=== PATIENT | male | born 1975 | race African-American/Black ===

== ENCOUNTER 2017-06-08 19:31 | Emergency (ER) | payer OTHER ==
[2017-06-08] MEDS ORDERED: Ketorolac 60 MG/2 ML SDV IM ONE (19:58)
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
[2017-06-08 22:26] VITALS: BP 142/86
--- NOTE | 2017-06-10 15:26 | CR ---
EXAM DATE: 06/08/17 PATIENT'S AGE: 42 Patient: ED JEWELL Facility: [place], [place] Site . Site : 1975 Study: XRay Spine Lumbar [id number]/19/2017 9:26:20 PM Ordering Physician: Doctor Johnson Final Report: Lumbar spine 3 VIEWS INDICATION: Pain. IMPRESSION: Alignment is normal. No fractures or osseous lesions. The vertebral bodies. No listhesis. Disc spaces are maintained. Minimal anterior annular spurring at the superior aspect of L4. Dictated by Donald Padilla MD @ Jun 08 2017 9:29PM (Electronic Signature) Report Signed by Proxy. HILARIO
--- NOTE | 2017-06-10 15:27 | CR ---
EXAM DATE: 06/08/17 PATIENT'S AGE: 42 Patient: ED JEWELL Facility: [place], [place] Site . Site : 1975 Study: XRay Spine [id number] 9:26:39 PM Ordering Physician: Doctor Johnson Final Report: Sacrum and coccyx. 3 VIEWS INDICATION: Pain. IMPRESSION: No visualized fracture. Alignments anatomic. Joint spaces unremarkable. Incidental bone island above the right acetabulum right ilium. Dictated by Donald Padilla MD @ Jun 08 2017 9:31PM (Electronic Signature) Report Signed by Proxy. HILARIO
== END 2017-06-08 22:22 | disposition home or self-care (01) ==
LOC: MW.ED 19:31
DX: M54.5 Low back pain (principal); Z91.013 Allergy to seafood
CPT/HCPCS: 72100; 72220; 96372; 99283; J1885; J2360; 99282

== ENCOUNTER 2017-10-03 06:56 | Emergency (ER) | payer BC ==
--- NOTE | 2017-10-03 07:21 | EDM.PDOC ---
ED HPI GENERAL MEDICAL PROBLEM - General Chief Complaint: General Stated Complaint: NOSE BLEEDS, BLOOD PRESSURE CHECK Time Seen by Provider: 10/03/17 07:21 Source of Information: Reports: Patient - History of Present Illness INITIAL COMMENTS - FREE TEXT/NARRATIVE: HISTORY AND PHYSICAL: History of present illness: [Patient presents with history of epistaxis over the last few days intermittent nasal bleeding on the right nares, no active bleeding at current no fever nausea vomiting chills sweats no chest pain shortness breath headache dizziness palpitation no bowel or urine symptoms ] Review of systems: As per history of present illness and below otherwise all systems reviewed and negative. Past medical history: As per history of present illness and as reviewed below otherwise noncontributory. Surgical history: As per history of present illness and as reviewed below otherwise noncontributory. Social history: No reported history of drug or alcohol abuse. Family history: As per history of present illness and as reviewed below otherwise noncontributory. Physical exam: HEENT: Atraumatic, normocephalic, pupils reactive, negative for conjunctival pallor or scleral icterus, mucous membranes moist, throat clear, neck supple, nontender, trachea midline. Left there there is a scab approximately 1/2 inch into the left there there is no active bleeding it is dry the nasal mucosa itself is dry in appearance, right and there is patent with within normal limits Lungs: Clear to auscultation, breath sounds equal bilaterally, chest nontender. Heart: S1S2, regular, negative for clicks, rubs, or JVD. Abdomen: Soft, nondistended, nontender. Negative for masses or hepatosplenomegaly. Negative for costovertebral tenderness. Pelvis: Stable nontender. Genitourinary: Deferred. Rectal: Deferred. Extremities: Atraumatic, negative for cords or calf pain. Neurovascular unremarkable. Neuro: Awake, alert, oriented. Cranial nerves II through XII unremarkable. Cerebellum unremarkable. Motor and sensory unremarkable throughout. Exam nonfocal. Diagnostics: []CBC INR Therapeutics: []None Return if symptoms persist or worsen [id number] symptomatic therapy/saline spray Impression: []Epistaxis resolved Definitive disposition and diagnosis as appropriate pending reevaluation and review of above. Generalized Pain Score (Numeric/FACES): 5 - Related Data Allergies Allergy/AdvReac Type Severity Reaction Status Date / Time shellfish derived Allergy Difficulty Verified 10/03/17 07:09 Breathing Home Meds: Home Meds . [No Known Home Meds] 06/08/17 [History] Past Medical History - Past Health History Medical/Surgical History: Denies Medical/Surgical History Social & Family History - Family History Family Medical History: Noncontributory - Tobacco Use Smoking Status *Q: Current Every Day Smoker Years of Tobacco use: 10 Packs/Tins Daily: 1 - Caffeine Use Caffeine Use: Reports: Coffee, Tea - Recreational Drug Use Recreational Drug Use: No ED ROS GENERAL - Review of Systems Review Of Systems: ROS reveals no pertinent complaints other than HPI. ED EXAM, GENERAL - Physical Exam Exam: See Below Course - Vital Signs Last Recorded V/S: Last Vital Signs Temp 99.2 F 10/03/17 07:06 Pulse 95 10/03/17 07:06 Resp 18 10/03/17 07:06 BP 146/90 H 10/03/17 07:06 Pulse Ox 97 10/03/17 07:06 - Orders/Labs/Meds Labs: Laboratory Tests 10/03/17 10/03/17 Range/Units 07:26 07:26 WBC 7.23 (4.0-11.0) K/uL RBC 4.81 (4.50-5.90) M/uL Hgb 14.5 (13.0-17.0) g/dL Hct 39.9 (38.0-50.0) % MCV 83.0 (80.0-98.0) fL MCH 30.1 (27.0-32.0) pg MCHC 36.3 (31.0-37.0) g/dL RDW Std Deviation 45.4 (28.0-62.0) fl RDW Coeff of Jordan 15 (11.0-15.0) % Plt Count 307 (150-400) K/uL MPV 10.20 (7.40-12.00) fL Neut % (Auto) 58.0 (48.0-80.0) % Lymph % (Auto) 32.4 (16.0-40.0) % [place] % (Auto) 7.9 (0.0-15.0) % Eos % (Auto) 1.4 (0.0-7.0) % Baso % (Auto) 0.3 (0.0-1.5) % Neut # (Auto) 4.2 (1.4-5.7) K/uL Lymph # (Auto) 2.3 (0.6-2.4) K/uL [place] # (Auto) 0.6 (0.0-0.8) K/uL Eos # (Auto) 0.1 (0.0-0.7) K/uL Baso # (Auto) 0.0 (0.0-0.1) K/uL Nucleated RBC % 0.0 /100WBC Nucleated RBCs # 0 K/uL INR 1.12 H (0.86-1.11) Departure - Departure Time of Disposition: 08:12 Disposition: Home, Self-Care 01 Condition: Good Clinical Impression: Epistaxis - Discharge Information Referrals: PCP,None [Primary Care Provider] - Forms: ED Department Discharge Additional Instructions: The following information is given to patients seen in the emergency department who are being discharged to home. This information is to outline your options for follow-up care. We provide all patients seen in our emergency department with a follow-up referral. The need for follow-up, as well as the timing and circumstances, are variable depending upon the specifics of your emergency department visit. If you don't have a primary care physician on staff, we will provide you with a referral. We always advise you to contact your personal physician following an emergency department visit to inform them of the circumstance of the visit and for follow-up with them and/or the need for any referrals to a consulting specialist. The emergency department will also refer you to a specialist when appropriate. This referral assures that you have the opportunity for follow-up care with a specialist. All of these measure are taken in an effort to provide you with optimal care, which includes your follow-up. Under all circumstances we always encourage you to contact your private physician who remains a resource for coordinating your care. When calling for follow-up care, please make the office aware that this follow-up is from your recent emergency room visit. If for any reason you are refused follow-up, please contact the [facility] emergency department at and asked to speak to the emergency department charge nurse.
[2017-10-03 08:30] VITALS: BP 177/84
== END 2017-10-03 08:29 | disposition home or self-care (01) ==
LOC: MW.ED 06:56
DX: R04.0 Epistaxis (principal); F17.210 Nicotine dependence, cigarettes, uncomplicated; Z91.013 Allergy to seafood
CPT/HCPCS: 36415; 85025; 85610; 99283

== ENCOUNTER 2019-02-03 18:53 | Emergency (ER) | payer BC ==
--- NOTE | 2019-02-03 19:07 | EDM.PDOC ---
ED HPI GENERAL MEDICAL PROBLEM - General Stated Complaint: POSS STROKE Time Seen by Provider: 02/03/19 18:57 - History of Present Illness INITIAL COMMENTS - FREE TEXT/NARRATIVE: HISTORY AND PHYSICAL: History of present illness: Patient's 44-year-old black male who presents with a concern of hyperventilation anxiety and chest pain he's had panic attack 2 and recently lost his job. He is brought here by paramedics with girlfriend. Review of systems: As per history of present illness and below otherwise all systems reviewed and negative. Past medical history: As per history of present illness and as reviewed below otherwise noncontributory. Surgical history: As per history of present illness and as reviewed below otherwise noncontributory. Social history: No reported history of drug or alcohol abuse. Family history: As per history of present illness and as reviewed below otherwise noncontributory. Physical exam: HEENT: Atraumatic, normocephalic, pupils reactive, negative for conjunctival pallor or scleral icterus, mucous membranes moist, throat clear, neck supple, nontender, trachea midline. Lungs: Clear to auscultation, breath sounds equal bilaterally, chest nontender. Heart: S1S2, regular, negative for clicks, rubs, or JVD. Abdomen: Soft, nondistended, nontender. Negative for masses or hepatosplenomegaly. Negative for costovertebral tenderness. Pelvis: Stable nontender. Genitourinary: Deferred. Rectal: Deferred. Extremities: Atraumatic, negative for cords or calf pain. Neurovascular unremarkable. Neuro: Awake, alert, anxious, oriented. Cranial nerves II through XII unremarkable. Cerebellum unremarkable. Motor and sensory unremarkable throughout. Exam nonfocal. Diagnostics: EKG Therapeutics: Ativan 1 mg IV Impression: #1 acute anxiety #2 atypical chest pain Definitive disposition and diagnosis as appropriate pending reevaluation and review of above. - Related Data Allergies Allergy/AdvReac Type Severity Reaction Status Date / Time shellfish derived Allergy Difficulty Verified 09/17/18 21:23 Breathing Home Meds: Home Meds . [No Known Home Meds] 06/08/17 [History] Past Medical History - Past Health History Medical/Surgical History: Denies Medical/Surgical History Immunologic History: Reports: None - Infectious Disease History Infectious Disease History: Reports: None Social & Family History - Family History Family Medical History: Noncontributory - Caffeine Use Caffeine Use: Reports: Coffee, Energy Drinks, Soda, Tea ED ROS GENERAL - Review of Systems Review Of Systems: ROS reveals no pertinent complaints other than HPI. ED EXAM, GENERAL - Physical Exam Exam: See Below (See dictated) Departure - Departure Time of Disposition: 19:05 Disposition: Home, Self-Care 01 Condition: Good Clinical Impression: Anxiety, Atypical chest pain - Discharge Information Referrals: Chriss Hines MD [Primary Care Provider] - Additional Instructions: The following information is given to patients seen in the emergency department who are being discharged to home. This information is to outline your options for follow-up care. We provide all patients seen in our emergency department with a follow-up referral. The need for follow-up, as well as the timing and circumstances, are variable depending upon the specifics of your emergency department visit. If you don't have a primary care physician on staff, we will provide you with a referral. We always advise you to contact your personal physician following an emergency department visit to inform them of the circumstance of the visit and for follow-up with them and/or the need for any referrals to a consulting specialist. The emergency department will also refer you to a specialist when appropriate. This referral assures that you have the opportunity for followup care with a specialist. All of these measure are taken in an effort to provide you with optimal care, which includes your followup. Under all circumstances we always encourage you to contact your private physician who remains a resource for coordinating your care. When calling for followup care, please make the office aware that this follow-up is from your recent emergency room visit. If for any reason you are refused follow-up, please contact the [facility] emergency department at and asked to speak to the emergency department charge nurse. Follow-up primary medical doctor as needed as discussed return as needed discussed
[2019-02-03] MEDS: LORazepam 2 MG/ML SDV IVPUSH ONE (19:10)
[2019-02-03 20:13] VITALS: BP 143/94
== END 2019-02-03 19:20 | disposition home or self-care (01) ==
LOC: MW.ED 18:53
DX: F41.9 Anxiety disorder, unspecified (principal); Z91.013 Allergy to seafood
CPT/HCPCS: 93005; 99283; J2060

== ENCOUNTER 2019-12-07 08:28 | Emergency (ER) | payer BC ==
--- NOTE | 2019-12-07 10:06 | EDM.PDOC ---
ED HPI GENERAL MEDICAL PROBLEM - General Chief Complaint: Upper Extremity Injury/Pain Stated Complaint: NUMBNESS IN HANDS Time Seen by Provider: 12/07/19 09:40 - History of Present Illness INITIAL COMMENTS - FREE TEXT/NARRATIVE: Presents stating that he experienced frostbite several times in the past, most recently 2 weeks ago. 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 Temperatures lately have been significantly cold, often below 0 degrees. He said that when he experienced this episode of frostbite, he had been outside for about 30 minutes. When he felt his fingers beginning to tingle, he says he got into his truck. He says he did not seek medical care on the day of that particular episode of frostbite , but chose to come in today because he noticed that he still has no sensation in his fingertips. He complains that he has lost sensation in his fingertips, to the point that he has been dropping tools from his hands today. He did not experience significant cold exposure today; he says that he was working inside ( not outside) when he realized that he was dropping tools. Patient declined skin color changes today. Denies fine motor weakness or other difficulties moving fingers. - Related Data Allergies Allergy/AdvReac Type Severity Reaction Status Date / Time shellfish derived Allergy Difficulty Verified 12/07/19 08:39 Breathing Home Meds: Home Meds . [No Known Home Meds] 06/08/17 [History] Past Medical History - Past Health History Medical/Surgical History: Denies Medical/Surgical History HEENT History: Reports: None Cardiovascular History: Reports: Hypertension Respiratory History: Reports: None Gastrointestinal History: Reports: None Genitourinary History: Reports: None Musculoskeletal History: Reports: None Neurological History: Reports: None Psychiatric History: Reports: Anxiety, PTSD Endocrine/Metabolic History: Reports: None Hematologic History: Reports: None Immunologic History: Reports: None Oncologic (Cancer) History: Reports: None Dermatologic History: Reports: None - Infectious Disease History Infectious Disease History: Reports: None - Past Surgical History Head Surgeries/Procedures: Reports: None Social & Family History - Family History Family Medical History: Noncontributory - Tobacco Use Smoking Status *Q: Current Every Day Smoker Years of Tobacco use: 1 Packs/Tins Daily: 0.7 - Caffeine Use Caffeine Use: Reports: Coffee - Recreational Drug Use Recreational Drug Use: No Review of Systems - Review of Systems Review Of Systems: See Below Constitutional: Denies: Fever, Weakness Musculoskeletal: Denies: Joint Swelling Skin: Denies: Mottled, Pallor, Change in Color Neurological: Reports: Numbness. Denies: Paresthesia, Tremors ED EXAM, GENERAL - Physical Exam Exam: See Below Free Text/Narrative:: General: alert, well appearing, no acute distress Heart: Radial pulses intact bilaterally. Cap refill remains intact in the digits of the hands. Skin: warm, dry, good turgor.No blackish or dark discoloration of the hands or fingers (incl fingertips). Fingertips are light brownish and well perfused. Musculoskeletal: soft compartments. Intact ROM of hands, fingers.Strong proj mgr bilaterally. Extremities: Atraumatic, negative for cords or calf pain. No bony deformities. Neuro: Awake, alert, oriented. Cranial nerves II through XII unremarkable. Patient intact on the dorsum of each finger, but patient has very impaired perception of light touch on each fingertip. Patient has almost no sensation remaining on the distal aspect of the palmar surface of each fingertip. Patient has intact proprioception. There is some perception of touch in the proximal two thirds on the palmar aspect of each finger, but it is impaired. Course - Vital Signs Text/Narrative:: Patient shows signs of cold injury. Patient has been advised that current medical literature says that cold exposure is contraindicated for 6 months after minor frostbite injury and for at least 12 months after any significant cold injury. Complications of frostbite can include scarring, tissue atrophy, arthritis, bony abnormalities, peripheral neuropathy (including hyper or hypoesthesia of fingers with decreased proprioception and chronic pain). Patient was advised that he can do work inside, as long as it is not inside a cold room, but that he should not work outside or in other ways be subjected to cold exposure for at least 6 months after this injury, and then until cleared by a neurologist. Advised patient that his blood pressure is above normal today, and should be rechecked primary care provider. He should ask at that time if he needs to go on medication for blood pressure control. Last Recorded V/S: Last Vital Signs Temp 97.8 F 12/07/19 10:23 Pulse 70 12/07/19 10:23 Resp 18 12/07/19 08:39 BP 150/100 H 12/07/19 10:23 Pulse Ox 99 12/07/19 10:23 - Orders/Labs/Meds Orders: Active Orders 24 hr Category Date Time Status Ready for Discharge [RC] PER UNIT ROUTINE Care 12/07/19 10:19 Active Departure - Departure Time of Disposition: 10:15 Disposition: Home, Self-Care 01 Clinical Impression: Elevated blood pressure reading Frostbite of both feet Qualifiers: Encounter type: initial encounter Qualified Code(s): T33.821A - Superficial frostbite of right foot, initial encounter - Discharge Information Instructions: Frostbite, [id number], Hypertension, [id number], Preventing Hypertension Referrals: Esperanza Bee MD [Physician] - Chriss Hines MD [Primary Care Provider] - ([facility] - Internal Medicine [address] [place] [address] Please follow-up with the internal medicine clinic within the next week for recheck of your blood pressure and to ask if you need to go on blood pressure medication. Also, please have your fingers reexamined at the medicine clinic. [facility] - Urology [address] [place] [address] He see a neurologist within the next 2 to 3 weeks and instrument of the decreased feeling in your fingers after your frostbite injury.) Forms: ED Department Discharge Additional Instructions: 1. Follow-up in the internal medicine clinic within 1 week for recheck of your blood pressure and to ask if you need to go on medication. Also, have your fingers reexamined at the medicine clinic at that time. 2. Follow-up with a neurologist within 2 to 3 weeks regarding the loss of sensation you are experiencing in your fingers. 3. Be advised that you should avoid cold exposure for for 6 months after minor frostbite injury and for at least 12 months after any significant cold injury. Complications of frostbite can include scarring, tissue atrophy (meaning the tissue begins to degenerate, losing bulk and strength), arthritis, bony abnormalities, peripheral neuropathy (meaning nerve damage that can cause both decreased sensation and intense pain). Therefore, it is essential that you follow-up promptly with a primary care physician and a neurologist. We have given you referrals to a local primary care clinic and a local neurology clinic. The following information is given to patients seen in the emergency department who are being discharged to home. This information is to outline your options for follow-up care. We provide all patients seen in our emergency department with a follow-up referral. The need for follow-up, as well as the timing and circumstances, are variable depending upon the specifics of your emergency department visit. If you don't have a primary care physician on staff, we will provide you with a referral. We always advise you to contact your personal physician following an emergency department visit to inform them of the circumstance of the visit and for follow-up with them and/or the need for any referrals to a consulting specialist. The emergency department will also refer you to a specialist when appropriate. This referral assures that you have the opportunity for follow-up care with a specialist. All of these measure are taken in an effort to provide you with optimal care, which includes your follow-up. Under all circumstances we always encourage you to contact your private physician who remains a resource for coordinating your care. When calling for follow-up care, please make the office aware that this follow-up is from your recent emergency room visit. If for any reason you are refused follow-up, please contact the [facility] Emergency Department at and ask to speak to the emergency department charge nurse. Sepsis Event Note - Evaluation Sepsis Screening Result: No Definite Risk - Focused Exam Vital Signs: Vital Signs Temp Pulse BP Pulse Ox 12/07/19 10:23 97.8 F 70 150/100 H 99 Date Exam was Performed: 12/07/19 Time Exam was Performed: 20:44 - My Orders Last 24 Hours: My Active Orders 12/07/19 10:19 Ready for Discharge [RC] PER UNIT ROUTINE - Assessment/Plan Last 24 Hours: My Active Orders 12/07/19 10:19 Ready for Discharge [RC] PER UNIT ROUTINE
[2019-12-07 10:25] VITALS: BP 150/100; PULSE 70
== END 2019-12-07 10:34 | disposition home or self-care (01) ==
LOC: MW.ED 08:28
DX: T33.821A Superficial frostbite of right foot, initial encounter (principal); I10 Essential (primary) hypertension; F17.210 Nicotine dependence, cigarettes, uncomplicated; Z91.013 Allergy to seafood
CPT/HCPCS: 99283

== ENCOUNTER 2021-05-24 13:20 | Emergency (ER) | payer OTHER ==
[2021-05-24] MEDS ORDERED: Sodium Chloride 0.9% 2.5 ML Syringe FLUSH PRN (13:22)
[2021-05-24] MEDS ORDERED: Sodium Chloride 0.9% 10 ML Syringe FLUSH PRN (13:22)
--- NOTE | 2021-05-24 13:24 | EDM.PDOC ---
ED HPI GENERAL MEDICAL PROBLEM - General Chief Complaint: General Stated Complaint: RIB INJURY Time Seen by Provider: 05/24/21 13:22 Source of Information: Reports: Patient, EMS History Limitations: Reports: No Limitations - History of Present Illness INITIAL COMMENTS - FREE TEXT/NARRATIVE: 46-year-old male past medical history hypertension presents for left-sided rib injury. Patient was moving yesterday when a grandfather clock fell on his left lateral chest and back. No other injuries. He noted immediate pain to the area with worse pain with deep breath and. The pain continued throughout today and became severe prompting him to call EMS. chest Pain Score (Numeric/FACES): 3 - Related Data Allergies Allergy/AdvReac Type Severity Reaction Status Date / Time shellfish derived Allergy Difficulty Verified 05/24/21 13:36 Breathing Home Meds: Home Meds Escitalopram [Lexapro] 05/24/21 [History] Ibuprofen [Motrin] 600 mg PO Q6H PRN #20 tab 05/24/21 [Rx] Metoprolol Succinate 05/24/21 [History] Mirtazapine 05/24/21 [History] QUEtiapine [SEROquel] 05/24/21 [History] oxyCODONE HCl/Acetaminophen [Percocet 5-325 mg Tablet] 1 each PO Q4H PRN #18 tablet 05/24/21 [Rx] traZODone 05/24/21 [History] Past Medical History - Past Health History Medical/Surgical History: Denies Medical/Surgical History HEENT History: Reports: None Cardiovascular History: Reports: Hypertension Respiratory History: Reports: None Gastrointestinal History: Reports: None Genitourinary History: Reports: None Musculoskeletal History: Reports: None Neurological History: Reports: None Psychiatric History: Reports: Anxiety, PTSD Endocrine/Metabolic History: Reports: None Hematologic History: Reports: None Immunologic History: Reports: None Oncologic (Cancer) History: Reports: None Dermatologic History: Reports: None - Infectious Disease History Infectious Disease History: Reports: None - Past Surgical History Head Surgeries/Procedures: Reports: None Social & Family History - Family History Family Medical History: No Pertinent Family History - Caffeine Use Caffeine Use: Reports: Coffee ED ROS GENERAL - Review of Systems Review Of Systems: Comprehensive ROS is negative, except as noted in HPI. ED EXAM, GENERAL - Physical Exam Exam: See Below Exam Limited By: No Limitations General Appearance: Alert, WD/WN, No Apparent Distress Ears: Hearing Grossly Normal Throat/Mouth: Normal Voice, No Airway Compromise Head: Atraumatic, Normocephalic Neck: Normal Inspection, Non-Tender Respiratory/Chest: No Respiratory Distress, Lungs Clear, Normal Breath Sounds, No Accessory Muscle Use, Other (TTP of left lateral chest wall) Cardiovascular: Normal Peripheral Pulses, Regular Rate, Rhythm Extremities: Normal Inspection Neurological: Alert, Normal Cognition, Normal Gait Psychiatric: Normal Affect, Normal Mood Skin Exam: Warm, Dry, Intact, Normal Color #1 Interpretation EKG Date: 05/24/21 Time: 13:19 Rhythm: NSR Rate (Beats/Min): 71 [place]: Normal P-Wave: Present QRS: Normal ST-T: Normal QT: Normal NE/PQ Interval: 169 EKG Interpretation Comments: No ischemic changes, normal EKG Course - Vital Signs Last Recorded V/S: Last Vital Signs Temp 97.2 F 05/24/21 13:31 Pulse 61 05/24/21 15:21 Resp 18 05/24/21 15:21 BP 158/103 H 05/24/21 15:21 Pulse Ox 98 05/24/21 15:21 - Orders/Labs/Meds Orders: Active Orders 24 hr Category Date Time Status EKG Documentation Completion [RC] STAT Care 05/24/21 13:22 Active Sodium Chloride 0.9% [Saline Flush] Med 05/24/21 13:22 Active 10 ml FLUSH ASDIRECTED PRN Sodium Chloride 0.9% [Saline Flush] Med 05/24/21 13:22 Active 2.5 ml FLUSH ASDIRECTED PRN Saline Lock Insert [OM.PC] Stat Oth 05/24/21 13:22 Ordered Medication Orders Sodium Chloride (Sodium Chloride 0.9% 10 Ml Syringe) 10 ml FLUSH ASDIRECTED PRN PRN Reason: Keep Vein Open Last Admin: 05/24/21 13:38 Dose: 10 ml Documented by: ASHWIN Sodium Chloride (Sodium Chloride 0.9% 2.5 Ml Syringe) 2.5 ml FLUSH ASDIRECTED PRN PRN Reason: Keep Vein Open Last Admin: 05/24/21 13:37 Dose: 2.5 ml Documented by: ASHWIN Labs: Laboratory Tests 05/24/21 05/24/21 Range/Units 13:36 13:36 WBC 5.03 (4.0-11.0) K/uL RBC 5.05 (4.50-5.90) M/uL Hgb 15.5 (13.0-17.0) g/dL Hct 42.1 (38.0-50.0) % MCV 83.4 (80.0-98.0) fL MCH 30.7 (27.0-32.0) pg MCHC 36.8 (31.0-37.0) g/dL RDW Std Deviation 46.8 (28.0-62.0) fl RDW Coeff of [place] 16 H (11.0-15.0) % Plt Count 267 (150-400) K/uL MPV 10.90 (7.40-12.00) fL Neut % (Auto) 44.3 L (48.0-80.0) % Lymph % (Auto) 45.7 H (16.0-40.0) % [place] % (Auto) 7.8 (0.0-15.0) % Eos % (Auto) 1.8 (0.0-7.0) % Baso % (Auto) 0.4 (0.0-1.5) % Neut # (Auto) 2.2 (1.4-5.7) K/uL Lymph # (Auto) 2.3 (0.6-2.4) K/uL [place] # (Auto) 0.4 (0.0-0.8) K/uL Eos # (Auto) 0.1 (0.0-0.7) K/uL Baso # (Auto) 0.0 (0.0-0.1) K/uL Nucleated RBC % 0.0 /100WBC Nucleated RBCs # 0 K/uL Sodium 142 (136-148) mmol/L Potassium 4.1 (3.5-5.1) mmol/L Chloride 107 (98-107) mmol/L Carbon Dioxide 22.9 (21.0-32.0) mmol/L BUN 15 (7.0-18.0) mg/dL Creatinine 1.2 (0.8-1.3) mg/dL Est Cr Clr Drug Dosing 81.92 mL/min Estimated GFR (MDRD) > 60.0 ml/min Glucose 112 H (74-106) mg/dL Calcium 8.2 L (8.5-10.1) mg/dL Total Bilirubin 0.3 (0.2-1.0) mg/dL AST 34 (15-37) IU/L ALT 52 (14-63) IU/L Alkaline Phosphatase 64 (46-116) U/L Troponin I < 0.050 (0.000-0.056) ng/mL Total Protein 7.0 (6.4-8.2) g/dL Albumin 3.7 (3.4-5.0) g/dL Globulin 3.3 (2.6-4.0) g/dL Albumin/Globulin Ratio 1.1 (0.9-1.6) Meds: Medications Generic Name Dose Route Start Last Admin Trade Name Freq PRN Reason Stop Dose Admin Sodium Chloride 10 ml 05/24/21 13:22 05/24/21 13:38 Sodium Chloride 0.9% 10 Ml Syringe FLUSH 10 ml ASDIRECTED PRN Administration Keep Vein Open Sodium Chloride 2.5 ml 05/24/21 13:22 05/24/21 13:37 Sodium Chloride 0.9% 2.5 Ml Syringe FLUSH 2.5 ml ASDIRECTED PRN Administration Keep Vein Open - Re-Assessments/Exams Free Text/Narrative Re-Assessment/Exam: 05/24/21 13:24 Low suspicion ACS or PE given the known injury. EKG is normal. Will get basic labs. Will get chest CT without contrast to assess for osseous injury to ribs and pulmonary contusion. 05/24/21 15:31 No abnormalities on imaging or labs. Will discharge with pain medication. Departure - Departure Time of Disposition: 15:31 Disposition: Home, Self-Care 01 Condition: Good Clinical Impression: Contusion of rib on left side Qualifiers: Encounter type: initial encounter Qualified Code(s): S20.212A - Contusion of left front wall of thorax, initial encounter - Discharge Information Prescriptions: Ibuprofen [Motrin] 600 mg PO Q6H PRN #20 tab PRN Reason: Pain oxyCODONE HCl/Acetaminophen [Percocet 5-325 mg Tablet] 1 each PO Q4H PRN #18 tablet PRN Reason: Pain Instructions: Rib Contusion, COVID-19 Vaccine Information Forms: ED Department Discharge Additional Instructions: Your labs and imaging are unremarkable. You are likely suffering from a rib contusion. I have prescribed pain medication and sent to your pharmacy. The best way to protect yourself and others from COVID-19 is to take one of the three safe and effective vaccines that have been proven to substantially reduce risk of both infection and severe illness. [facility] is currently offering COVID vaccinations for anyone age 18 and older. To schedule an appointment call [phone]. Or, to be contacted by our clinics about scheduling your vaccine online, please go to [email or web address] The following information is given to patients seen in the emergency department who are being discharged to home. This information is to outline your options for follow-up care. We provide all patients seen in our emergency department with a follow-up referral. The need for follow-up, as well as the timing and circumstances, are variable depending upon the specifics of your emergency department visit. If you don't have a primary care physician on staff, we will provide you with a referral. We always advise you to contact your personal physician following an emergency department visit to inform them of the circumstance of the visit and for follow-up with them and/or the need for any referrals to a consulting specialist. The emergency department will also refer you to a specialist when appropriate. This referral assures that you have the opportunity for follow-up care with a specialist. All of these measure are taken in an effort to provide you with optimal care, which includes your follow-up. Under all circumstances we always encourage you to contact your private physician who remains a resource for coordinating your care. When calling for follow-up care, please make the office aware that this follow-up is from your recent emergency room visit. If for any reason you are refused follow-up, please contact the [facility] Emergency Department at and asked to speak to the emergency department charge nurse. Please follow up with your primary care physician. If you do not have a primary care physician, see below: [facility] [address] [place] [id number] [facility] [address] [place] [address] Sepsis Event Note (ED) - Focused Exam Vital Signs: Vital Signs Temp Pulse Resp BP Pulse Ox 05/24/21 15:21 61 18 158/103 H 98 05/24/21 13:31 97.2 F 68 18 169/89 H 98 - My Orders Last 24 Hours: My Active Orders 05/24/21 13:22 EKG Documentation Completion [RC] STAT Sodium Chloride 0.9% [Saline Flush] 10 ml FLUSH ASDIRECTED PRN Sodium Chloride 0.9% [Saline Flush] 2.5 ml FLUSH ASDIRECTED PRN Saline Lock Insert [OM.PC] Stat - Assessment/Plan Last 24 Hours: My Active Orders 05/24/21 13:22 EKG Documentation Completion [RC] STAT Sodium Chloride 0.9% [Saline Flush] 10 ml FLUSH ASDIRECTED PRN Sodium Chloride 0.9% [Saline Flush] 2.5 ml FLUSH ASDIRECTED PRN Saline Lock Insert [OM.PC] Stat
[2021-05-24 14:36] LABS: BLOOD UREA NITROGEN,BUN 15 mg/dL (7.0-18.0); CARBON DIOXIDE,CO2 22.9 mmol/L (21.0-32.0); CHLORIDE,CL 107 mmol/L (98-107); GLUCOSE RANDOM 112 mg/dL (74-106); POTASSIUM,K 4.1 mmol/L (3.5-5.1); SODIUM,NA 142 mmol/L (136-148)
[2021-05-24 15:22] VITALS: BP 158/103; PULSE 61
--- NOTE | 2021-05-24 15:23 | CT ---
Indication: Left-sided rib injury last night Technique: Volumetric multidetector CT images of the chest were obtained without the administration of IV contrast. Comparison: None available. Findings: The thoracic inlet and thyroid gland are unremarkable. The thoracic aorta is nonaneurysmal. 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 There is mild central bronchial thickening and mild traction bronchiectasis seen within the peripheral lower lobes. There is moderate interlobular and intralobular septal thickening predominantly in the lower lobes with superimposed ground-glass opacities and atelectatic changes. There is no evidence of pulmonary mass or suspicious pulmonary nodule. There is no evidence of displaced rib fracture. The thoracic vertebral body heights are grossly maintained with mild straightening of the normal thoracic kyphosis. There is no significant spondylolisthesis. Impression: No evidence of displaced rib fracture. Incidental note made of moderate central bronchial thickening with interlobular septal thickening, ground-glass and likely parenchymal scarring predominantly within the lung bases which may represent sequela of infectious or inflammatory changes. Otherwise, no acute cardiopulmonary abnormality. Please note that all CT scans at this facility use dose modulation, iterative reconstruction, and/or weight-based dosing when appropriate to reduce radiation dose to as low as reasonably achievable. Dictated by Jose Asif MD @ 05/24/2021 3:21:[address] Jose Asif @ May 24 2021 3:21PM
== END 2021-05-24 16:10 | disposition home or self-care (01) ==
LOC: MW.ED 13:20
DX: S20.212A Contusion of left front wall of thorax, initial encounter (principal); I10 Essential (primary) hypertension; Z91.013 Allergy to seafood; Z79.899 Other long term (current) drug therapy; W20.8XXA Other cause of strike by thrown, projected or falling object, initial encounter
CPT/HCPCS: 36415; 71250; 71250-26; 80053; 84484; 85025; 93005; 99284-25

== ENCOUNTER 2021-07-06 08:03 | Emergency (ER) | payer OTHER ==
[2021-07-06] MEDS ORDERED: Ondansetron 4 MG/2 ML SDV IVPUSH ONE (09:07)
[2021-07-06 10:12] LABS: BLOOD UREA NITROGEN,BUN 11 mg/dL (7.0-18.0); CARBON DIOXIDE,CO2 22.1 mmol/L (21.0-32.0); CHLORIDE,CL 105 mmol/L (98-107); GLUCOSE RANDOM 239 mg/dL (74-106); POTASSIUM,K 4.5 mmol/L (3.5-5.1); SODIUM,NA 137 mmol/L (136-148)
--- NOTE | 2021-07-06 11:17 | EDM.PDOC ---
ED HPI GENERAL MEDICAL PROBLEM - General Chief Complaint: Head Injury Stated Complaint: HEAD INJURY Time Seen by Provider: 07/06/21 08:20 - History of Present Illness INITIAL COMMENTS - FREE TEXT/NARRATIVE: CHIEF COMPLAINT(S): "I am an idiot." HISTORY OF PRESENT ILLNESS: This is a 46-year-old man with a past medical history of hypertension, depression, and anxiety who comes to the emergency department with a chief complaint of "I am an idiot." The patient states that approximately 3 days ago he was looking underneath a cabinet when he came up and hit the front of his head. He states that he fell backward hitting the back of his head. He does not know if he had any loss of consciousness. He states that he does have a history of vertigo before however this feels different as he is not experiencing spinning. He states that he is having bouts of double vision and feels unsteady when he walks. He states that there was a large swollen area on the front of his scalp with some bleeding that lasted approximately 4 hours with her which he put ice on it. He states that since that time he has been experiencing nausea and vomiting and anytime he gets up he gets that sensation of double vision and unsteadiness. He denies any bloody emesis. He states that this does feel like his to prior concussions but this is more severe. He denies any use of oral anticoagulation. He states that he does have a headache which is located where he hit the front of his head which he describes as throbbing not associated with any loss of vision but is associated double vision intermittently. No numbness or tingling but does feel unsteady with walking. No aggravating or relieving factors for the pain. He has not yet tried any pain medication. He denies any other symptoms. REVIEW OF SYSTEMS: Constitutional: Denies fever, chills. Eyes: Denies eye pain Ears, Nose, Mouth, & Throat: Denies earache Cardiovascular: Denies chest pain Respiratory: Denies shortness of breath Gastrointestinal: Denies Nausea, vomiting, diarrhea, hematochezia. Genitourinary: Denies hematuria Skin:Denies a rash MSK: Denies joint pain Neurological: Positive for head injury with possible loss of consciousness, double vision, headache, unsteady denies numbness, tingling, weakness. Psychiatric: Denies depression PAST MEDICAL HISTORY: As per history of present illness and as reviewed below otherwise noncontributory. SURGICAL HISTORY: As per history of present illness and as reviewed below otherwise noncontributory. SOCIAL HISTORY: As per history of present illness and as reviewed below otherwise noncontributory. FAMILY HISTORY: As per history of present illness and as reviewed below otherwise noncontributory. EXAMINATION OF ORGAN SYSTEMS/BODY AREAS: Constitutional: Blood pressure is 151/90, heart rate 70, respiratory rate 20 with an oxygen saturation 96% on room air. Temperature 35.9 General: Young man who does not appear to be acute distress Psychiatric: Appropriate mood and affect. Eyes: No scleral icterus or conjunctival erythema pupils were equal round reactive to light. Extraocular movements intact. No visual field defects. No nystagmus noted. See nursing note for visual acuity ENMT: Moist mucous membranes. No pharyngeal erythema Cardiovascular: Regular, rate, and rhythm. No gallops, murmurs, or rubs. Bilateral upper extremity pulses symmetric and intact. No peripheral edema. No JVD. Respiratory: Lungs clear to auscultation bilaterally. No wheezes, rales, or rhonchi. Gastrointestinal: Soft, non-tender, non-distended. Normoactive bowel sounds Genitourinary: No suprapubic tenderness Musculoskeletal: Normal range of motion. Skin: There is a well-healed lesion on the patient's anterior frontal scalp without any active bleeding, fluctuance or swelling. Neurological: AOx4. CN grossly intact. Stregth 5/5 in bilateral upper and lower extremity. Sensation is intact bilaterally in upper and lower extremity. The patient appears unsteady with gait but is able to ambulate. Finger to nose, heel to alvarado, rapid alternating movements intact. MEDICAL DECISION MAKING AND COURSE IN THE ED WITH INTERPRETATION/REVIEW OF DIAGNOSTIC STUDIES: This is a 46-year-old man with past medical history of hypertension, depression and anxiety who comes to the emergency department with 3 days of headache associated with vomiting, nausea and double vision after a head injury who is not on anticoagulation who is mildly hypertensive with an abnormal gait with otherwise normal neurological examination with visual acuity issues even with glasses. At this time differential does include intracranial hemorrhage, severe concussion versus other etiology such as posterior CVA. Given the duration of his symptoms no stroke code was called. The patient is not a TPA candidate. Currently his NIH stroke scale is 0. Will obtain CT head and CTA of the head and neck. Will obtain labs including CBC, CMP, urine drug screen, serum alcohol and a Covid swab. Given his description I do believe his symptoms are out of proportion to the mechanism of injury. Laboratory: CBC is unremarkable. CMP reveals hyperglycemia 239 otherwise unremarkable. Urine drug screen is positive for opiates, cocaine, and marijuan a. Serum alcohol is negative. Covid is negative. The radiological images were viewed by myself along with reading the report from the radiologist. CT head without contrast does not reveal any acute intracranial abnormality. CTA of the head and neck did not reveal any large vessel occlusion or aneurysm. After imaging and while awaiting final read the patient stated that he would like to go home. At this time I discussed that I would like to wait for final reads. After final read of the CTs I did contact Dr. Tsang neurologist at [facility] who recommended symptomatic treatment as this is likely postconcussive syndrome given duration of his symptoms there would be an abnormality on CT if there was some injury given his duration of symptoms. She recommended follow-up with neurology if he was still having trouble walking for physical therapy referral. I did discuss this with the patient. He was amenable to discharge at this time and had no further questions. DISPOSITION: The patient was discharged home in stable condition. The patient will follow up with primary care physician in 3 to 5 days CONDITION: Fair PROCEDURES: None FINAL IMPRESSION(S)/DIAGNOSES: 1. Acute postconcussive syndrome Marty Sow M.D. Head Pain Score (Numeric/FACES): 4 - Related Data Allergies Allergy/AdvReac Type Severity Reaction Status Date / Time shellfish derived Allergy Difficulty Verified 07/07/21 11:27 Breathing Home Meds: Home Meds RX: Escitalopram [Lexapro] 10 mg PO DAILY 05/24/21 [History] RX: Metoprolol Succinate 50 mg PO QAM 05/24/21 [History] RX: Mirtazapine 30 mg PO BEDTIME 05/24/21 [History] RX: QUEtiapine [SEROquel] 200 mg PO BEDTIME 05/24/21 [History] Past Medical History - Past Health History Medical/Surgical History: Denies Medical/Surgical History HEENT History: Reports: None Cardiovascular History: Reports: Hypertension Respiratory History: Reports: None Gastrointestinal History: Reports: None Genitourinary History: Reports: None Musculoskeletal History: Reports: None Neurological History: Reports: None Psychiatric History: Reports: Anxiety, PTSD Endocrine/Metabolic History: Reports: None Hematologic History: Reports: None Immunologic History: Reports: None Oncologic (Cancer) History: Reports: None Dermatologic History: Reports: None - Infectious Disease History Infectious Disease History: Reports: None - Past Surgical History Head Surgeries/Procedures: Reports: None Social & Family History - Family History Family Medical History: No Pertinent Family History - Tobacco Use Second Hand Smoke Exposure: No - Caffeine Use Caffeine Use: Reports: None - Recreational Drug Use Recreational Drug Use: Yes Recreational Drug Type: Reports: Marijuana/Hashish ED ROS GENERAL - Review of Systems Review Of Systems: See Below ED EXAM, HEAD INJURY - Physical Exam Exam: See Below Course - Vital Signs Last Recorded V/S: Last Vital Signs Temp 35.9 C L 07/06/21 08:20 Pulse 78 07/06/21 12:45 Resp 20 07/06/21 12:45 BP 139/89 07/06/21 12:45 Pulse Ox 98 07/06/21 12:45 - Orders/Labs/Meds Labs: Laboratory Tests 07/06/21 07/06/21 07/06/21 Range/Units 09:16 09:16 09:16 WBC 6.40 (4.0-11.0) K/uL RBC 4.69 (4.50-5.90) M/uL Hgb 14.4 (13.0-17.0) g/dL Hct 39.2 (38.0-50.0) % MCV 83.6 (80.0-98.0) fL MCH 30.7 (27.0-32.0) pg MCHC 36.7 (31.0-37.0) g/dL RDW Std Deviation 45.5 (28.0-62.0) fl RDW Coeff of Jordan 15 (11.0-15.0) % Plt Count 311 (150-400) K/uL MPV 10.70 (7.40-12.00) fL Neut % (Auto) 52.7 (48.0-80.0) % Lymph % (Auto) 35.6 (16.0-40.0) % [place] % (Auto) 9.2 (0.0-15.0) % Eos % (Auto) 2.0 (0.0-7.0) % Baso % (Auto) 0.5 (0.0-1.5) % Neut # (Auto) 3.4 (1.4-5.7) K/uL Lymph # (Auto) 2.3 (0.6-2.4) K/uL [place] # (Auto) 0.6 (0.0-0.8) K/uL Eos # (Auto) 0.1 (0.0-0.7) K/uL Baso # (Auto) 0.0 (0.0-0.1) K/uL Nucleated RBC % 0.0 /100WBC Nucleated RBCs # 0 K/uL Sodium 137 (136-148) mmol/L Potassium 4.5 (3.5-5.1) mmol/L Chloride 105 (98-107) mmol/L Carbon Dioxide 22.1 (21.0-32.0) mmol/L BUN 11 (7.0-18.0) mg/dL Creatinine 1.0 (0.8-1.3) mg/dL Est Cr Clr Drug Dosing 98.31 mL/min Estimated GFR (MDRD) > 60.0 ml/min Glucose 239 H (74-106) mg/dL Calcium 8.8 (8.5-10.1) mg/dL Total Bilirubin 0.1 L (0.2-1.0) mg/dL AST 8 L (15-37) IU/L ALT 32 (14-63) IU/L Alkaline Phosphatase 69 (46-116) U/L Total Protein 6.7 (6.4-8.2) g/dL Albumin 3.4 (3.4-5.0) g/dL Globulin 3.3 (2.6-4.0) g/dL Albumin/Globulin Ratio 1.0 (0.9-1.6) Urine Opiates Screen (NEGATIVE) Ur Oxycodone Screen (NEGATIVE) Urine Methadone Screen (NEGATIVE) Ur Barbiturates Screen (NEGATIVE) Ur Phencyclidine Scrn (NEGATIVE) Ur Amphetamine Screen (NEGATIVE) U Methamphetamines Scrn (NEGATIVE) U Benzodiazepines Scrn (NEGATIVE) U Cocaine Metab Screen (NEGATIVE) U Marijuana (THC) Screen (NEGATIVE) Ethyl Alcohol <3 mg/dL SARS-CoV-2 RNA (VANIA) NEGATIVE (NEGATIVE) 09/16/21 Range/Units 10:10 WBC (4.0-11.0) K/uL RBC (4.50-5.90) M/uL Hgb (13.0-17.0) g/dL Hct (38.0-50.0) % MCV (80.0-98.0) fL MCH (27.0-32.0) pg MCHC (31.0-37.0) g/dL RDW Std Deviation (28.0-62.0) fl RDW Coeff of Jordan (11.0-15.0) % Plt Count (150-400) K/uL MPV (7.40-12.00) fL Neut % (Auto) (48.0-80.0) % Lymph % (Auto) (16.0-40.0) % [place] % (Auto) (0.0-15.0) % Eos % (Auto) (0.0-7.0) % Baso % (Auto) (0.0-1.5) % Neut # (Auto) (1.4-5.7) K/uL Lymph # (Auto) (0.6-2.4) K/uL [place] # (Auto) (0.0-0.8) K/uL Eos # (Auto) (0.0-0.7) K/uL Baso # (Auto) (0.0-0.1) K/uL Nucleated RBC % /100WBC Nucleated RBCs # K/uL Sodium (136-148) mmol/L Potassium (3.5-5.1) mmol/L Chloride (98-107) mmol/L Carbon Dioxide (21.0-32.0) mmol/L BUN (7.0-18.0) mg/dL Creatinine (0.8-1.3) mg/dL Est Cr Clr Drug Dosing mL/min Estimated GFR (MDRD) ml/min Glucose (74-106) mg/dL Calcium (8.5-10.1) mg/dL Total Bilirubin (0.2-1.0) mg/dL AST (15-37) IU/L ALT (14-63) IU/L Alkaline Phosphatase (46-116) U/L Total Protein (6.4-8.2) g/dL Albumin (3.4-5.0) g/dL Globulin (2.6-4.0) g/dL Albumin/Globulin Ratio (0.9-1.6) Urine Opiates Screen POSITIVE (NEGATIVE) Ur Oxycodone Screen NEGATIVE (NEGATIVE) Urine Methadone Screen NEGATIVE (NEGATIVE) Ur Barbiturates Screen NEGATIVE (NEGATIVE) Ur Phencyclidine Scrn NEGATIVE (NEGATIVE) Ur Amphetamine Screen NEGATIVE (NEGATIVE) U Methamphetamines Scrn NEGATIVE (NEGATIVE) U Benzodiazepines Scrn NEGATIVE (NEGATIVE) U Cocaine Metab Screen POSITIVE (NEGATIVE) U Marijuana (THC) Screen POSITIVE (NEGATIVE) Ethyl Alcohol mg/dL SARS-CoV-2 RNA (VANIA) (NEGATIVE) Meds: Medications Discontinued Medications Generic Name Dose Route Start Last Admin Trade Name Freq PRN Reason Stop Dose Admin Iopamidol 100 ml 07/06/21 11:27 07/06/21 11:29 Iopamidol 755 Mg/Ml 500 Ml Multipack Bottle IVPUSH 07/06/21 11:28 100 ml ONETIME STA Administration Ondansetron HCl 4 mg 07/06/21 09:07 07/06/21 09:18 Ondansetron 4 Mg/2 Ml Sdv IVPUSH 07/06/21 09:08 4 mg ONETIME ONE Administration Departure - Departure Time of Disposition: 12:45 Disposition: Home, Self-Care 01 Condition: Fair Clinical Impression: Post concussive syndrome, Marijuana use, Cocaine use, Opiate use - Discharge Information *PRESCRIPTION DRUG MONITORING PROGRAM REVIEWED*: No *COPY OF PRESCRIPTION DRUG MONITORING REPORT IN PATIENT MONTY: No Instructions: Cocaine Use Disorder, Cannabis Use Disorder, Head Injury, Adult, [id number], Post-Concussion Syndrome, Opioid Use Disorder Referrals: Chriss Hines MD [Primary Care Provider] - Forms: ED Department Discharge Additional Instructions: You were evaluated today on an emergent basis. At this time you were diagnosed with postconcussive syndrome. I did review your images with neurology at [facility] in [place] with Dr. Quintero. At this time she recommends symptomatic treatment with Tylenol and Motrin for her headache, antinausea medication for your nausea. She states that if you have continued uneasiness with walking that she would need to follow-up with neurology for a physical therapy referral. She did recommend venlafaxine however you are on depression medications therefore this needs to be discussed with your primary care physician/neurologist. For postconcussive syndrome it is important that you limit any activity that stimulate your brain. I recommend that you refrain from reading books, watching TV, utilizing your phone and rest for the next 48 to 72 hours. This means decreased light in your home and sleep in a dark room. Maintain hydration with Gatorade, Pedialyte. If you have any worsening symptoms you are welcome to return to the emergency department. Otherwise I want you to follow-up with primary care physician and neurology within 3 to 5 days. In addition your urinalysis was positive for cocaine, opiates and marijuana. All of these do affect your body in different ways and I do recommend that you stop using these drugs. [facility] - Neurology Professional Building [address] [place], [address] [place] [address] [facility] - [facility] [address], [place] [address] [address] The patient is informed of any results of their evaluation and diagnostic workup and all questions are answered. They are given discharge instructions and return precautions. The patient is stable for discharge. The patient states they understand and agree with the plan and that they will return if their symptoms get worse or if they have any new concerns. The following information is given to patients seen in the emergency department who are being discharged to home. This information is to outline your options for follow-up care. We provide all patients seen in our emergency department with a follow-up referral. The need for follow-up, as well as the timing and circumstances, are variable depending upon the specifics of your emergency department visit. If you don't have a primary care physician on staff, we will provide you with a referral. We always advise you to contact your personal physician following an emergency department visit to inform them of the circumstance of the visit and for follow-up with them and/or the need for any referrals to a consulting specialist. The emergency department will also refer you to a specialist when appropriate. This referral assures that you have the opportunity for follow-up care with a specialist. All of these measure are taken in an effort to provide you with optimal care, which includes your follow-up. Under all circumstances we always encourage you to contact your private physician who remains a resource for coordinating your care. When calling for follow-up care, please make the office aware that this follow-up is from your recent emergency room visit. If for any reason you are refused follow-up, please contact the [facility] Emergency Department at and asked to speak to the emergency department charge nurse. Sepsis Event Note (ED) - Evaluation Sepsis Screening Result: No Definite Risk
[2021-07-06] MEDS ORDERED: Iopamidol 755 MG/ML 500 ML Multipack Bottle IVPUSH STA (11:27)
--- NOTE | 2021-07-06 11:30 | CT ---
Indication: head injury with double vision Technique: CT of the head without contrast. Coronal and sagittal reformats. Bone and soft tissue windows. Comparison: No prior studies available for comparison at this institution. Findings: No acute intracranial hemorrhage or extra-axial collection. No evidence of acute cortical infarction. No mass effect or midline shift. Normal cerebral volume. The ventricles are normal in size, shape and contour. There is normal gibson and white matter differentiation. Incidental prominent perivascular space in the left inferior basal ganglia. The orbital contents are normal. No calvarial fractures. No lytic or sclerotic osseous lesions within the calvarium or skull base. Scalp and other imaged soft tissue structures are normal. Mastoid air cells are clear. Paranasal sinuses are well aerated. Impression: No acute intracranial abnormality. Please note that all CT scans at this facility use dose modulation, iterative reconstruction, and/or weight-based dosing when appropriate to reduce radiation dose to as low as reasonably achievable. Dictated by Barrera Mac MD @ 07/06/2021 11:28:49 AM (Electronically Signed)
--- NOTE | 2021-07-06 11:32 | CT ---
DATE: 07/06/2021. CLINICAL HISTORY: Head injury with double vision. TECHNIQUE: Standard helical CT image acquisition through the head and neck after intravenous contrast bolus enhancement was performed. Multiplanar reconstructed images performed on a separate workstation. COMPARISON: None available. FINDINGS: The origins of the great vessels from the aortic arch are patent. The origins of the right and left vertebral arteries are patent. The common carotid arteries are patent. No significant stenoses at the origins of the proximal internal carotid arteries by NASCET criteria. The more distal cervical segments of the internal carotid arteries are patent. The cervical segments of the vertebral arteries are patent. No intracranial proximal large vessel occlusion or flow limiting luminal stenosis. The visualized lung apices are unremarkable. The thyroid gland is unremarkable. The cervical spine is within normal limits. IMPRESSION: 1. No intracranial proximal large vessel occlusion or flow limiting luminal stenosis. 2. Patent cervical arterial vasculature without hemodynamically significant luminal stenosis. No evidence of traumatic vascular injury. Please note that all CT scans at this facility use dose modulation, iterative reconstruction, and/or weight-based dosing when appropriate to reduce radiation dose to as low as reasonably achievable. Dictated by Maximo Simon MD @ 07/06/2021 12:07:40 PM (Electronically Signed)
[2021-07-06 15:47] VITALS: BP 139/89; PULSE 78
== END 2021-07-06 12:45 | disposition home or self-care (01) ==
LOC: MW.ED 08:03
DX: S09.90XA Unspecified injury of head, initial encounter (principal); F07.81 Postconcussional syndrome; F14.90 Cocaine use, unspecified, uncomplicated; F11.90 Opioid use, unspecified, uncomplicated; I10 Essential (primary) hypertension; Z91.013 Allergy to seafood; Z20.822 Contact with and (suspected) exposure to COVID-19; W18.09XA Striking against other object with subsequent fall, initial encounter
CPT/HCPCS: 36415; 70450; 70496; 70498; 80053; 80305; 80307; 85025; 87635; 96374; 99284; J2405; Q9967; U0002

== ENCOUNTER 2021-07-13 09:04 | Day surgery (SDC) | payer OTHER ==
--- NOTE | 2021-07-13 08:13 | PCM.PREANE ---
Preanesthetic Assessment - Anesthesia/Transfusion/Family Hx Anesthesia History: No Prior Anesthesia Family History of Anesthesia Reaction: No Transfusion History: No Prior Transfusion(s) - Review of Systems General: No Symptoms Pulmonary: No Symptoms Cardiovascular: No Symptoms Gastrointestinal: No Symptoms Neurological: No Symptoms Other: Reports: None - Physical Assessment NPO Status Date: 07/13/21 NPO Status Time: 00:00 Height: 5 ft 11 in Weight: 250 lb ASA Class: 3 Mental Status: Alert & Oriented x3 Airway Class: Mallampati = 2 Dentition: Reports: Normal Dentition, Lavalette(s) Thyro-Mental Finger Breadths: 3 Mouth Opening Finger Breadths: 3 ROM/Head Extension: Full Lungs: Clear to Auscultation, Normal Respiratory Effort Cardiovascular: Regular Rate, Regular Rhythm - Allergies Allergies/Adverse Reactions: Allergies Allergy/AdvReac Type Severity Reaction Status Date / Time shellfish derived Allergy Difficulty Verified 07/07/21 11:27 Breathing - Acknowledgements Anesthesia Type Planned: General Anesthesia Pt an Appropriate Candidate for the Planned Anesthesia: Yes Alternatives and Risks of Anesthesia Discussed w Pt/Guardian: Yes Pt/Guardian Understands and Agrees with Anesthesia Plan: Yes PreAnesthesia Questionnaire - Past Health History Medical/Surgical History: Denies Medical/Surgical History HEENT History: Reports: Other (See Below) Other HEENT History: wears glasses Cardiovascular History: Reports: Hypertension Respiratory History: Reports: None Gastrointestinal History: Reports: Chronic Constipation, Other (See Below) Other Gastrointestinal History: current rectal bleeding, occasional heartburn- no medications Genitourinary History: Reports: None Musculoskeletal History: Reports: None Neurological History: Reports: None Psychiatric History: Reports: Anxiety, Depression, PTSD Endocrine/Metabolic History: Reports: None Hematologic History: Reports: None Immunologic History: Reports: None Oncologic (Cancer) History: Reports: None Dermatologic History: Reports: None - Infectious Disease History Infectious Disease History: Reports: None - Past Surgical History Head Surgeries/Procedures: Reports: None Cardiovascular Surgical History: Reports: None Respiratory Surgical History: Reports: None GI Surgical History: Reports: None Male Surgical History: Reports: None Endocrine Surgical History: Reports: None Neurological Surgical History: Reports: None Musculoskeletal Surgical History: Reports: None - SUBSTANCE USE Tobacco Use Status *Q: Current Every Day Tobacco User Tobacco Use Within Last Twelve Months: Cigarettes Recreational Drug Use History: No - HOME MEDS Home Medications: Home Meds Escitalopram [Lexapro] 10 mg PO DAILY 05/24/21 [History] Metoprolol Succinate 50 mg PO QAM 05/24/21 [History] Mirtazapine 30 mg PO BEDTIME 05/24/21 [History] QUEtiapine [SEROquel] 200 mg PO BEDTIME 05/24/21 [History] - CURRENT (IN HOUSE) MEDS Current Meds: Current Medications Lactated Ringer's (Ringers, Lactated) 1,000 mls @ 125 mls/hr IV ASDIRECTED ALEC Sodium Chloride (Sodium Chloride 0.9% 10 Ml Syringe) 10 ml FLUSH ASDIRECTED PRN PRN Reason: Keep Vein Open Sodium Chloride (Sodium Chloride 0.9% 2.5 Ml Syringe) 2.5 ml FLUSH ASDIRECTED PRN PRN Reason: Keep Vein Open Sodium Chloride (Sodium Chloride 0.9% 10 Ml Syringe) 10 ml FLUSH ASDIRECTED PRN PRN Reason: Keep Vein Open Sodium Chloride (Sodium Chloride 0.9% 2.5 Ml Syringe) 2.5 ml FLUSH ASDIRECTED PRN PRN Reason: Keep Vein Open Sodium Chloride (Sodium Chloride 0.9% 10 Ml Sdv) 10 ml IV ASDIRECTED PRN PRN Reason: IV Use Discontinued Medications Fentanyl (Fentanyl 100 Mcg/2 Ml Sdv) Confirm Administered Dose 100 mcg .ROUTE .STK-MED ONE Stop: 07/13/21 07:05 Midazolam HCl (Midazolam 1 Mg/Ml 2 Ml Sdv) Confirm Administered Dose 2 mg .ROUTE .STK-MED ONE Stop: 07/13/21 07:05 Propofol (Propofol 200 Mg/20 Ml Sdv) Confirm Administered Dose 200 mg .ROUTE .STK-MED ONE Stop: 07/13/21 07:05
[~2021-07-13 09:04] MED LIST: Lactated Ringers 1,000 ML IV SCH; Midazolam 1 MG/ML 2 ML SDV ONE; Propofol 200 MG/20 ML SDV ONE; Sodium Chloride 0.9% 10 ML SDV IV PRN; Sodium Chloride 0.9% 10 ML Syringe FLUSH PRN; Sodium Chloride 0.9% 2.5 ML Syringe FLUSH PRN; fentaNYL 100 MCG/2 ML SDV ONE
[2021-07-13] MEDS ORDERED: Propofol 200 MG/20 ML SDV ONE ×2 (13:10→13:23)
--- NOTE | 2021-07-13 13:45 | PCM48HPAN ---
Post Anesthesia Note - EVALUATION WITHIN 48HRS OF ANESTHETIC Vital Signs in Normal Range: Yes Patient Participated in Evaluation: Yes Respiratory Function Stable: Yes Airway Patent: Yes Cardiovascular Function Stable: Yes Hydration Status Stable: Yes Pain Control Satisfactory: Yes Nausea and Vomiting Control Satisfactory: Yes Mental Status Recovered: Yes Vital Signs: Last Vital Signs Temp 97.7 F 07/13/21 09:22 Pulse 81 07/13/21 09:22 Resp 15 07/13/21 09:22 BP 143/92 H 07/13/21 09:22 Pulse Ox 97 07/13/21 09:22
--- NOTE | 2021-07-13 13:45 | PCM.POSTAN ---
POST ANESTHESIA ASSESSMENT - MENTAL STATUS Mental Status: Alert, Oriented - VITAL SIGNS Vital Signs: Last Vital Signs Temp 97.7 F 07/13/21 09:22 Pulse 81 07/13/21 09:22 Resp 15 07/13/21 09:22 BP 143/92 H 07/13/21 09:22 Pulse Ox 97 07/13/21 09:22 - RESPIRATORY Respiratory Status: Respiratory Rate WNL, Airway Patent, O2 Saturation Stable - CARDIOVASCULAR CV Status: Pulse Rate WNL, Blood Pressure Stable - GASTROINTESTINAL GI Status: No Symptoms - POST OP HYDRATION Hydration Status: Adequate & Stable
[2021-07-13 13:56] VITALS: BP 116/55; PULSE 70
--- NOTE | 2021-07-13 14:02 | PCM.OPNOTE ---
- General Post-Op/Procedure Note Date of Surgery/Procedure: 07/13/21 Operative Procedure(s): Diagnostic colonoscopy Findings: mild colitis of sigmoid colon otherwise normal, diverticulosis Pre Op Diagnosis: Change in bowel habits Post-Op Diagnosis: Diverticulosis, sigmoid colon colitis Anesthesia Technique: [facility] Primary Surgeon: Ilda Garcia Condition: Good Free Text/Narrative:: Intake & Output 07/12/21 07/13/21 07/13/21 22:59 06:59 14:59 Intake Total 650 Balance 650
--- NOTE | 2021-07-14 19:45 | OR ---
SURGEON: ILDA GARCIA MD DATE OF PROCEDURE: 07/13/2021 PREOPERATIVE DIAGNOSIS: Change in bowel habits. POSTOPERATIVE DIAGNOSES: 1. Diverticulosis. 2. Mild colitis of the sigmoid colon. PROCEDURE PERFORMED: Diagnostic colonoscopy with biopsy. PRIMARY SURGEON: Ilda Garcia MD ANESTHESIA: MAC. INSTRUMENT USED: Olympus colonoscope. EXTENT OF EXAM: To the cecum. PREPARATION: Good. LIMITATIONS: None. INDICATIONS FOR EXAMINATION: The patient is a 46-year-old male who presented to clinic with changes in his bowel habits. The decision was made to proceed with a diagnostic colonoscopy. I explained the procedure, expected perioperative course, and risks. The patient verbalized understanding and wishes to proceed. PROCEDURE IN DETAIL: The patient brought to the endoscopy suite and placed in a left lateral decubitus position. A time-out was completed verifying the patient's name, age, date of , allergies, and procedure to be performed. Monitored anesthesia care was induced and continuous oxygen was provided via nasal cannula throughout the procedure. After adequate sedation was achieved, a digital rectal exam was performed. This exam was within normal limits. A well-lubricated colonoscope was inserted in the rectum and advanced under direct visualization to the level of the cecum. The cecum was identified by both visual and anatomic landmarks. A photograph was taken of the cecal cap as well as with the scope retroflexed within the cecum. I closely inspected the terminal ileum and this appeared normal. The scope was then fully withdrawn while examining the color, texture, anatomy, and integrity of the mucosa from the cecum to the anal canal. The patient was noted to have some mild inflammation along the sigmoid colon. Random biopsies were taken of the cecum, ascending colon, transverse colon, descending colon, and rectum. Biopsies were taken throughout the sigmoid colon, labeled as sigmoid colon biopsy 1, 2 and 3. 1 was the most proximal biopsy and 3 was the most distal biopsy. The patient was noted to have diverticulosis within the sigmoid colon. The scope was then brought into the rectum and retroflexed to allow visualization of anal canal opening. This appeared normal and a photograph was taken. The scope was then straightened out and fully withdrawn. Cecum to anus time was 12 minutes. The patient tolerated the procedure well and was transferred to the PACU in stable condition. ENDOSCOPIC DIAGNOSES: 1. Diverticulosis. 2. Mild colitis of the sigmoid colon. RECOMMENDATIONS: Follow up in clinic in 2 weeks. VANE FLOYD /[id number]
== END 2021-07-13 14:05 | disposition home or self-care (01) ==
LOC: MW.SDS 09:04
PROVIDERS: ATTEND Surgery
DX: K57.30 Diverticulosis of large intestine without perforation or abscess without bleeding (principal); K52.9 Noninfective gastroenteritis and colitis, unspecified; I10 Essential (primary) hypertension; E66.9 Obesity, unspecified; F41.9 Anxiety disorder, unspecified; Z91.013 Allergy to seafood
CPT/HCPCS: 45380; J2250; J2704; J3010; J7120; 00811; 88305

== ENCOUNTER 2022-06-26 18:57 | Emergency (ER) | payer BC ==
[2022-06-26] MEDS ORDERED: Iopamidol 755 MG/ML 500 ML Multipack Bottle IVPUSH STA (19:19)
[2022-06-26 19:54] LABS: BLOOD UREA NITROGEN,BUN 14 mg/dL (7.0-18.0); CARBON DIOXIDE,CO2 26.4 mmol/L (21.0-32.0); CHLORIDE,CL 105 mmol/L (98-107); GLUCOSE RANDOM 104 mg/dL (74-106); POTASSIUM,K 3.8 mmol/L (3.5-5.1); SODIUM,NA 141 mmol/L (136-148)
[2022-06-26 19:56] LABS: ESTIMATED GFR 93 mL/min (>60)
[2022-06-26 20:18] VITALS: BP 170/96; PULSE 62
[2022-06-26] MEDS ORDERED: Losartan 50 MG Tab PO ONE (20:42)
[2022-06-26] MEDS ORDERED: Ketorolac 30 MG/ML SDV IVPUSH ONE (20:42)
== END 2022-06-26 21:02 | disposition home or self-care (01) ==
LOC: MW.ED 18:57
DX: I10 Essential (primary) hypertension (principal); F41.9 Anxiety disorder, unspecified; Z20.822 Contact with and (suspected) exposure to COVID-19; Z79.899 Other long term (current) drug therapy; Z91.013 Allergy to seafood
CPT/HCPCS: 36415; 70450; 70496; 70498; 71045; 80053; 80307; 82947; 83735; 84484; 85025; 85610; 85730; 87635; 93005; 99285; Q9967; U0002

== ENCOUNTER 2023-12-16 08:26 | Observation (INO) | payer OTHER ==
[2023-12-16] MEDS: Meclizine 25 MG Tab PO ONE (09:10)
[2023-12-16] MEDS: hydrALAZINE 20 MG/ML SDV IVPUSH ONE (09:12)
[2023-12-16 09:13] LABS: BASOPHILS ABSOLUTE AUTO 0.02 K/uL (0.00-0.20); BASOPHILS PERCENT AUTO 0.2 % (0.0-1.0); EOSINOPHILS ABSOLUTE AUTO 0.03 K/uL (0.00-0.45); EOSINOPHILS PERCENT AUTO 0.4 % (0.0-6.0); HEMATOCRIT 42.2 % (42.0-52.0); HEMOGLOBIN 15.6 g/dL (14.0-18.0); IMMATURE GRAN ABSOLUTE AUTO 0.01 K/uL (0.00-0.05); IMMATURE GRAN PERCENT AUTO 0.1 % (0.0-0.4); LYMPHOCYTES ABSOLUTE AUTO 2.06 K/uL (1.00-4.80); LYMPHOCYTES PERCENT AUTO 25.3 % (24.0-44.0); MEAN CORPUSCULAR HEMOGLOBIN 29.9 pg (28.0-32.0); MEAN PLATELET VOLUME 10.6 fL (9.4-12.4); MONOCYTES ABSOLUTE AUTO 0.65 K/uL (0.00-0.80); NEUTROPHILS ABSOLUTE AUTO 5.36 K/uL (1.80-7.70); PLATELET COUNT,PLT 286 K/uL (150-400); RED BLOOD CELL COUNT 5.21 M/uL (4.52-5.90); WHITE BLOOD CELL COUNT,WBC 8.13 K/uL (3.9-11.3)
[2023-12-16 09:33] LABS: AMPHETAMINES SCREEN, URINE NEGATIVE (CUTOFF=500); BARBITURATE SCREEN,URINE NEGATIVE (CUTOFF=200); BENZODIAZEPINES SCREEN,URINE NEGATIVE (CUTOFF=150); BUPRENORPHINE SCREEN,URINE NEGATIVE (CUTOFF=10); METHADONE SCREEN, URINE NEGATIVE (CUTOFF=200); METHAMPHETAMINES SCREEN, URINE NEGATIVE (CUTOFF=500); OXYCODONE SCREEN,URINE NEGATIVE (CUT0FF=100); PCP SCREEN,URINE NEGATIVE (CUTOFF=25); THC SCREEN,URINE 20 NG/ML PRESUMPTIVE POSITIVE (CUTOFF=50)
[2023-12-16 09:40] LABS: ALANINE AMINOTRANSFERASE,ALT 32 IU/L (14-63); ALBUMIN 3.8 g/dL (3.4-5.0); ALKALINE PHOSPHATASE 60 U/L (46-116); ASPARTATE AMNIOTRANSFERASE,AST 36 IU/L (15-37); BILIRUBIN TOTAL 0.7 mg/dL (0.2-1.0); BLOOD UREA NITROGEN,BUN 20 mg/dL (7.0-18.0); CALCIUM 8.6 mg/dL (8.5-10.1); CARBON DIOXIDE,CO2 26.6 mmol/L (21.0-32.0); CHLORIDE,CL 105 mmol/L (98-107); CREATININE 2.1 mg/dL (0.8-1.3); EST CRCL DRUG DOSING (CG) 45.82 mL/min; ESTIMATED GFR 38 mL/min (>60); ETHANOL BLOOD MEDICAL <3 mg/dL; GLUCOSE RANDOM 97 mg/dL (74-106); MAGNESIUM 2.3 mg/dL (1.8-2.4); PROTEIN TOTAL,TP 7.5 g/dL (6.4-8.2); SODIUM,NA 141 mmol/L (136-148)
[2023-12-16 09:52] LABS: CORONAVIRUS COVID-19 NAA NEGATIVE (NEGATIVE); INFLUENZA A NAA NEGATIVE (NEGATIVE); INFLUENZA B NAA NEGATIVE (NEGATIVE)
[2023-12-16] MEDS: Sodium Chloride 0.9% 1,000 ML IV ONE (10:19)
[2023-12-16] MEDS ORDERED: Ondansetron 4 MG/2 ML SDV IVPUSH PRN (12:13)
[2023-12-16] MEDS: Enoxaparin 40 MG/0.4 ML Syringe SUBCUT SCH ×2 (13:25→15:52)
[2023-12-16] MEDS: Gadobenate Dimeglumine 529 MG/ML 20 ML SDV IVPUSH STA (13:25)
[2023-12-16] MEDS: Lactated Ringers 1,000 ML IV SCH (15:52)
[2023-12-16] MEDS: Losartan 50 MG Tab PO SCH (18:18)
[2023-12-16] MEDS: Acetaminophen 325 MG Tab PO PRN (20:19)
[2023-12-17 05:36] LABS: BASOPHILS ABSOLUTE AUTO 0.04 K/uL (0.00-0.20); BASOPHILS PERCENT AUTO 0.7 % (0.0-1.0); EOSINOPHILS ABSOLUTE AUTO 0.05 K/uL (0.00-0.45); EOSINOPHILS PERCENT AUTO 0.9 % (0.0-6.0); HEMATOCRIT 38.2 % (42.0-52.0); HEMOGLOBIN 14.3 g/dL (14.0-18.0); IMMATURE GRAN ABSOLUTE AUTO 0.01 K/uL (0.00-0.05); IMMATURE GRAN PERCENT AUTO 0.2 % (0.0-0.4); LYMPHOCYTES ABSOLUTE AUTO 2.48 K/uL (1.00-4.80); LYMPHOCYTES PERCENT AUTO 42.5 % (24.0-44.0); MEAN CORPUSCULAR HEMOGLOBIN 30.7 pg (28.0-32.0); MEAN CORPUSCULAR HGB CONC 37.4 g/dL (32.0-36.0); MEAN PLATELET VOLUME 10.4 fL (9.4-12.4); MONOCYTES ABSOLUTE AUTO 0.55 K/uL (0.00-0.80); MONOCYTES PERCENT AUTO 9.4 % (0.0-8.0); NEUTROPHILS ABSOLUTE AUTO 2.71 K/uL (1.80-7.70); NEUTROPHILS PERCENT AUTO 46.3 % (41.0-71.0); PLATELET COUNT,PLT 243 K/uL (150-400); RED BLOOD CELL COUNT 4.66 M/uL (4.52-5.90); WHITE BLOOD CELL COUNT,WBC 5.84 K/uL (3.9-11.3)
[2023-12-17 06:14] LABS: A/G RATIO 0.9 (0.9-1.6); ALBUMIN 3.1 g/dL (3.4-5.0); BILIRUBIN TOTAL 0.4 mg/dL (0.2-1.0); CALCIUM 8.3 mg/dL (8.5-10.1); CARBON DIOXIDE,CO2 24.2 mmol/L (21.0-32.0); CREATININE 1.7 mg/dL (0.8-1.3); EST CRCL DRUG DOSING (CG) 56.6 mL/min; MAGNESIUM 2.1 mg/dL (1.8-2.4); POTASSIUM,K 4.1 mmol/L (3.5-5.1); PROTEIN TOTAL,TP 6.4 g/dL (6.4-8.2)
[2023-12-17] MEDS: amLODIPine 5 MG Tab PO SCH (09:16)
[2023-12-17 12:16] VITALS: BP 162/101; PULSE 59
[2023-12-19] MEDS ORDERED: FLU (Flulaval Quad) 2023-24(6MOS UP)/PF 60 MCG/0.5 ML Syringe IM ONE (12:30)
== END 2023-12-17 12:26 | disposition home or self-care (01) ==
LOC: MW.ED 08:26 → MW.MS 10:17
PROVIDERS: ADMIT Internal Medicine; ATTEND Internal Medicine
DX: R42 Dizziness and giddiness (principal); I10 Essential (primary) hypertension; N17.9 Acute kidney failure, unspecified; F41.9 Anxiety disorder, unspecified; F17.200 Nicotine dependence, unspecified, uncomplicated; Z91.013 Allergy to seafood
CPT/HCPCS: 0240U; 36415; 70450; 70553; 80053; 80061; 80305; 80307; 83690; 83735; 84484; 85025; 93005; 93306; 93880; 95992; 96361; 96372; 96374; 97162; 97530; 99285; A9270; A9577; G0378; J0360; J1650; J7030; J7120; 93010; 99284

== ENCOUNTER 2024-06-28 11:36 | Emergency (ER) | payer OTHER ==
[~2024-06-28 11:36] MED LIST changes: -Lactated Ringers 1,000 ML IV SCH; -Midazolam 1 MG/ML 2 ML SDV ONE; +Ondansetron 4 MG/2 ML SDV ONE; -Propofol 200 MG/20 ML SDV ONE; -Sodium Chloride 0.9% 10 ML SDV IV PRN; -Sodium Chloride 0.9% 10 ML Syringe FLUSH PRN; -Sodium Chloride 0.9% 2.5 ML Syringe FLUSH PRN; -fentaNYL 100 MCG/2 ML SDV ONE; +fentaNYL 50 MCG/ML SDV ONE
[2024-06-28] MEDS: fentaNYL 50 MCG/ML SDV IVPUSH ONE (11:36)
[2024-06-28] MEDS: Ondansetron 4 MG/2 ML SDV IVPUSH ONE (11:37)
[2024-06-28] MEDS: Midazolam 1 MG/ML 2 ML SDV IVPUSH ONE (11:38)
[2024-06-28] MEDS: amLODIPine 5 MG Tab PO ONE (12:17)
[2024-06-28] MEDS: Losartan 50 MG Tab PO ONE (12:30)
[2024-06-28 13:43] VITALS: BP 159/89; PULSE 61
== END 2024-06-28 13:42 | disposition home or self-care (01) ==
LOC: MW.ED 11:36
DX: S43.314A Dislocation of right scapula, initial encounter (principal); I10 Essential (primary) hypertension; F17.210 Nicotine dependence, cigarettes, uncomplicated; Z79.899 Other long term (current) drug therapy; Z91.013 Allergy to seafood; W10.9XXA Fall (on) (from) unspecified stairs and steps, initial encounter; Y99.0 Civilian activity done for income or pay; Z75.8 Other problems related to medical facilities and other health care
CPT/HCPCS: 23650; 73030; 96374; 96375; 99284; A9270; J2250; J2405; J3010

== ENCOUNTER 2024-11-30 18:11 | Emergency (ER) | payer OTHER ==
[2024-11-30] MEDS: Lidocaine 1% 5 ML VIAL ONE (18:49)
[2024-11-30] MEDS: Lidocaine 1% 5 ML VIAL INJECT ONE (18:49)
[2024-11-30] MEDS: Lidocaine 1% 10 ML MDV INJECT ONE (18:50)
[2024-11-30] MEDS: HYDROmorphone 1 MG/ML Syringe IVPUSH ONE (19:29)
[2024-11-30] MEDS: Etomidate 2 MG/ML 20 ML SDV IVPUSH ONE (19:29)
[2024-11-30] MEDS: Propofol 200 MG/20 ML SDV IVPUSH ONE (20:25)
[2024-11-30] MEDS: cloNIDine 0.1 MG Tab PO ONE (20:56)
[2024-11-30] MEDS: HYDROmorphone 0.5 MG/0.5 ML Syringe IVPUSH ONE (22:38)
[2024-11-30 22:41] VITALS: BP 156/101; PULSE 72
== END 2024-11-30 23:10 | disposition home or self-care (01) ==
LOC: MW.ED 18:11
DX: S42.141A Displaced fracture of glenoid cavity of scapula, right shoulder, initial encounter for closed fracture (principal); S42.151A Displaced fracture of neck of scapula, right shoulder, initial encounter for closed fracture; I10 Essential (primary) hypertension; Z79.899 Other long term (current) drug therapy; Z91.013 Allergy to seafood; Z75.8 Other problems related to medical facilities and other health care; W01.0XXA Fall on same level from slipping, tripping and stumbling without subsequent striking against object, initial encounter; Y92.002 Bathroom of unspecified non-institutional (private) residence as the place of occurrence of the external cause
CPT/HCPCS: 23650; 73020; 73030; 96374; 99152; 99284; A9270; J1171; J3490; 99283; J2704

== ENCOUNTER 2024-12-01 06:05 | Emergency (ER) | payer OTHER ==
[2024-12-01] MEDS: HYDROmorphone 1 MG/ML Syringe IVPUSH ONE (06:25)
[2024-12-01] MEDS: LORazepam 2 MG/ML SDV IVPUSH ONE (06:25)
[2024-12-01] MEDS ORDERED: Naloxone 0.4 MG/ML SDV IVPUSH PRN (07:43)
[2024-12-01] MEDS: Sodium Chloride 0.9% 1,000 ML IV ONE (08:10)
[2024-12-01] MEDS: Ketamine 500 mg/10 ML MDV IV ONE (08:17)
[2024-12-01] MEDS: Midazolam 1 MG/ML 2 ML SDV IVPUSH ONE (08:34)
[2024-12-01] MEDS: Midazolam 1 MG/ML 2 ML SDV ONE (08:46)
[2024-12-01] MEDS: HYDROmorphone 0.5 MG/0.5 ML Syringe IVPUSH ONE (08:54)
[2024-12-01] MEDS: Enalaprilat 1.25 MG/ML SDV IVPUSH ONE (08:56)
[2024-12-01 12:00] VITALS: BP 178/98; PULSE 60
== END 2024-12-01 11:58 | disposition home or self-care (01) ==
LOC: MW.ED 06:05
DX: S43.014A Anterior dislocation of right humerus, initial encounter (principal); S43.034A Inferior dislocation of right humerus, initial encounter; I10 Essential (primary) hypertension; Z79.899 Other long term (current) drug therapy; Z91.013 Allergy to seafood; X50.1XXA Overexertion from prolonged static or awkward postures, initial encounter
CPT/HCPCS: 23650; 73020; 73030; 96374; 96375; 99283; J1171; J2060; J2250; J3490; J7030

== ENCOUNTER 2024-12-17 04:04 | Emergency (ER) | payer OTHER ==
[2024-12-17] MEDS: Ondansetron 4 MG/2 ML SDV IVPUSH ONE ×2 (04:17)
[2024-12-17] MEDS ORDERED: Naloxone 0.4 MG/ML SDV IVPUSH PRN (04:17)
[2024-12-17] MEDS: Morphine 4 MG/ML Syringe IVPUSH ONE ×2 (04:17→05:37)
[2024-12-17] MEDS: Sodium Chloride 0.9% 1,000 ML IV SCH (04:17)
[2024-12-17] MEDS: Ketorolac 30 MG/ML SDV IVPUSH ONE (04:20)
[2024-12-17] MEDS: Morphine 2 MG/ML SYRINGE IVPUSH ONE (04:21)
[2024-12-17] MEDS ORDERED: Sodium Chloride 0.9% 10 ML Syringe FLUSH PRN (04:26)
[2024-12-17] MEDS ORDERED: Sodium Chloride 0.9% 2.5 ML Syringe FLUSH PRN (04:26)
[2024-12-17] MEDS ORDERED: Sodium Chloride 0.9% 20 ML SDV IV PRN (04:26)
[2024-12-17 04:51] LABS: BASOPHILS ABSOLUTE AUTO 0.06 K/uL (0.00-0.20); BASOPHILS PERCENT AUTO 0.5 % (0.0-1.0); EOSINOPHILS ABSOLUTE AUTO 0.03 K/uL (0.00-0.45); EOSINOPHILS PERCENT AUTO 0.2 % (0.0-6.0); HEMATOCRIT 42.1 % (42.0-52.0); HEMOGLOBIN 15.6 g/dL (14.0-18.0); IMMATURE GRAN ABSOLUTE AUTO 0.06 K/uL (0.00-0.05); IMMATURE GRAN PERCENT AUTO 0.5 % (0.0-0.4); LYMPHOCYTES ABSOLUTE AUTO 2.82 K/uL (1.00-4.80); LYMPHOCYTES PERCENT AUTO 23.1 % (24.0-44.0); MEAN CORPUSCULAR HGB CONC 37.1 g/dL (32.0-36.0); MEAN PLATELET VOLUME 9.9 fL (9.4-12.4); MONOCYTES ABSOLUTE AUTO 0.71 K/uL (0.00-0.80); MONOCYTES PERCENT AUTO 5.8 % (0.0-8.0); NEUTROPHILS ABSOLUTE AUTO 8.55 K/uL (1.80-7.70); NEUTROPHILS PERCENT AUTO 69.9 % (41.0-71.0); PLATELET COUNT,PLT 379 K/uL (150-400); WHITE BLOOD CELL COUNT,WBC 12.23 K/uL (3.9-11.3)
[2024-12-17 05:08] LABS: CALCIUM 8.9 mg/dL (8.5-10.1); CARBON DIOXIDE,CO2 19.7 mmol/L (21.0-32.0); CREATININE 1.3 mg/dL (0.8-1.3); EST CRCL DRUG DOSING (CG) 68.74 mL/min; POTASSIUM,K 4.3 mmol/L (3.5-5.1)
[2024-12-17] MEDS: Propofol 200 MG/20 ML SDV IVPUSH ONE (05:09)
[2024-12-17 06:52] VITALS: PULSE 60
[2024-12-17 07:32] VITALS: BP 194/111
== END 2024-12-17 07:34 | disposition home or self-care (01) ==
LOC: MW.ED 04:04
DX: S43.014A Anterior dislocation of right humerus, initial encounter (principal); I10 Essential (primary) hypertension; Z75.8 Other problems related to medical facilities and other health care; Z79.899 Other long term (current) drug therapy; Z91.013 Allergy to seafood; X58.XXXA Exposure to other specified factors, initial encounter
CPT/HCPCS: 23650; 36415; 73030; 80048; 80307; 85025; 96361; 96374; 96375; 96376; 99283; J1885; J2270; J2405; J2704; J7030; 99284